=== PATIENT | female | born 2005 | race Caucasian/White ===

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

== ENCOUNTER 2025-03-03 10:01 | Emergency (ER) | payer MEDICAID ==
[~2025-03-03] VITALS: Ht 167.6 cm; Wt 66.0 kg
[2025-03-03 10:05] VITALS: O2SAT 97
[2025-03-03 10:07] VITALS: BP 127/75; PULSE 82; RESP 16; TEMP 36.8; O2SAT 100
== END 2025-03-03 11:17 | disposition home or self-care (01) ==
LOC: ER 10:32
DX: G62.9 Polyneuropathy, unspecified (principal)
CPT/HCPCS: 99281; Z7610 ×2; 29105; 99283; A4606